=== PATIENT | female | born 1975 | race Caucasian/White ===

== ENCOUNTER 2020-08-04 06:22 | Inpatient (IN) | payer OTHER ==
[~2020-08-04] VITALS: Ht 162.6 cm; Wt 99.4 kg
[2020-08-04 06:15] VITALS: BP 128/71
[2020-08-04] MEDS ORDERED: CHLO25TA10 PO (07:10)
--- NOTE | 2020-08-04 07:15 | NUR ---
ADMIT NOTE The patient, ISAMAR HICKS, 45 y/o, F admitted by GI JEFFERSON MD, was given written information regarding hospital policies, unit procedures and contact persons. Patient orientated to unit, plan of care discussed, and admit packet reviewed. Patient's allergies verified and home medication sent to pharmacy for storage. MD notified of patient admission and orders received. Patient in bed, bed in lowest/locked position, and call light within reach. Transfer of care to oncoming RN at this time.
[2020-08-04] MEDS ORDERED: ONDANSETRON PF 4 MG/2 ML VIAL. IVP PRN (07:30)
[2020-08-04] MEDS ORDERED: SECU150P2 SQ (07:41)
[2020-08-04] MEDS: MORPHINE SULFATE 4 MG/ML VIAL. IV PRN ×2 (08:02→12:11)
[2020-08-04] MEDS: IV NORMAL SALINE 1000ML BAG 1,000 ML IV SCH ×2 (08:02→18:11)
--- NOTE | 2020-08-04 08:36 | PDOC1 ---
History and Physical Date of Admission Date of Admission DATE: 08/04/20 TIME: 08:29 Identification/Chief Complaint Chief Complaint Abdominal pain, vaginal bleeding Source Source: Patient History of Present Illness History of Present Illness Ms Thompson is a 45 year old female w/ PMHx psoriatic arthritis who presents to [place] ED with reported vaginal bleeding and cramping. Patient complaining of dysfunctional uterine bleeding like cramps, but severe epigastric symptoms. She has previously had an appendectomy cholecystectomy, and bowel resection for intussusception at age 4 months. She was initially worried that may have been her. Or recently starting Cosentyx for her psoriatic arthritis but she failed to improve with conservative measures she came to the ER. CT abdomen pelvis consistent with a small bowel obstruction. Labs with WBC 7.8, Hb 13.8, platelets 259, NA 134, K4.7, BUN 17, CR 0.9, glucose 136, INR 120 urinalysis positive for blood negative hCG. Due to small bowel obstruction patient was transferred to [facility] for general surgical consultation and further management. Past Medical History Cardiovascular: No pertinent hx Rheumatologic: Other (Psoriatic) Past Surgical History Past Surgical History: Appendectomy, Cholecystectomy, (x2), Colon R esection Current Medications Current Medications Current Medications Morphine Sulfate (Morphine Sulfate) 4 mg PRN Q4HRS PRN IV PAIN Last administered on 08/04/20at 08:02; Start 08/04/20 at 07:30 Ondansetron HCl (Zofran) 4 mg PRN Q6HRS PRN IVP NAUSEA/VOMITING Last administered on 08/04/20at 08:02; Start 08/04/20 at 07:30 Sodium Chloride 1,000 ml @ 100 mls/hr Q10H IV Last administered on 08/04/20at 08:02; Start 08/04/20 at 07:30 Active Scripts Active Reported Cosentyx Pen (Secukinumab) 150 Mg/1 Ml Pen.injctr 150 Mg SQ WEEKLY Chlorthalidone (Chlorthalidone) 25 Mg Tablet 25 Mg PO DAILY Allergies Allergies: Coded Allergies: codeine (Verified Allergy, Unknown, 08/04/20) TOLERATES MORPHINE hydrocodone (Verified Allergy, Unknown, 08/04/20) TOLERATES MORPHINE ROS General: YES: Fatigue, Malaise; No: Chills, Night Sweats, Appetite, Other PSYCHOLOGICAL ROS: No: Anxiety, Behavioral Disorder, Concentration difficultie, Decreased libido, Depression, Disorientation, Hallucinations, Hostility, Irritablity, Memory difficulties, Mood Swings, Obsessive thoughts, Physical abuse, Sexual abuse, Sleep disturbances, Suicidal ideation, Other Eyes: No Blurry vision, No Decreased vision, No Double vision, No Dry eyes, No Excessive tearing, No Eye Pain, No Itchy Eyes, No Loss of vision, No Photophobia, No Scotomata, No Uses contacts, No Uses glasses, No Other HEENT: No: Heacaches, Visual Changes, Hearing change, Nasal congestion, Nasal discharge, Oral lesions, Sinus pain, Sore Throat, Epistaxis, Sneezing, Snoring, Tinnitus, Vertigo, Vocal changes, Other ALLERGY AND IMMUNOLOGY: No: Hives, Insect Bite Sensitivity, Itchy/Watery Eyes, Nasal Congestion, Post Nasal Drip, Seasonal Allergies, Other Hematological and Lymphatic: No: Bleeding Problems, Blood Clots, Blood Transfusions, Brusing, Night Sweats, Pallor, Swollen Lymph Nodes, Other ENDOCRINE: No: Breast Changes, Galactorrhea, Hair Pattern Changes, Hot Flashes, Malaise/lethargy, Mood Swings, Palpitations, Polydipsia/polyuria, Skin Changes, Temperature Intolerance, Unexpected Weight Changes, Other Breast: No New/Changing Breast Lumps, No Nipple changes, No Nipple discharge, No Other Respiratory: No: Cough, Hemoptysis, Orthopnea, Pleuritic Pain, Shortness of breath, SOB with excertion, Sputum Changes, Stridor, Tachypnea, Wheezing, Other Cardiovascular: No Chest Pain, No Palpitations, No Orthopnea, No Paroxysmal Noc. Dyspnea, No Edema, No Lt Headedness, No Other Gastrointestinal: Yes Nausea, Yes Vomiting, Yes Abdominal Pain; No Diarrhea, No Constipation, No Melena, No Hematochezia, No Other Genitourinary: No Dysuria, No Frequency, No Incontinence, No Hematuria, No Retention, No Discharge, No Urgency, No Pain, No Flank Pain, No Other, No , No , No , No , No , No , No Musculoskeletal: No Gait Disturbance, No Joint Pain, No Joint Stiffness, No Joint Swelling, No Muscle Pain, No Muscular Weakness, No Pain In:, No Swelling In:, No Other Neurological: No Behavorial Changes, No Bowel/Bladder ControlChng, No Confusion, No Dizziness, No Gait Disturbance, No Headaches, No Impaired Coord/balance, No Memory Loss, No Numbness/Tingling, No Seizures, No Speech Problems, No Tremors, No Visual Changes, No Weakness, No Other Skin: Yes Rash; No Dry Skin, No Eczema, No Hair Changes, No Lumps, No Mole Changes, No Mottling, No Nail Changes, No Pruritus, No Skin Lesion Changes, No Other, No Acne Physical Exam General: Alert, Oriented X3, Cooperative, moderate distress HEENT: Atraumatic, PERRLA, EOMI, Mucous membr. moist/pink Lungs: Clear to auscultation, Normal air movement Heart: S1S2, RRR, no thrills, no rubs, no gallops, no murmurs Abdomen: Soft, No hepatosplenomegaly, No masses, Other (Diffuse tenderness, mulitple scars) Rectal Exam: not examined Extremities: No clubbing, No cyanosis, No edema, Normal pulses, No tenderness/swelling Skin: Other (Psoriasis of knuckles, ankles, knees, elbows) Neuro: Normal gait, Normal speech, Strength at 5/5 X4 ext, Normal tone, Sensation intact, Cranial nerves 3-12 NL, Reflexes 2+ Psych/Mental Status: Mental status NL, Mood NL Vitals Vitals Vital Signs Date Time Temp Pulse Resp B/P (MAP) Pulse Ox O2 Delivery O2 Flow Rate FiO2 08/04/20 08:02 Room Air 08/04/20 06:15 98.5 58 14 128/71 (90) 97 98.5 Labs Labs Laboratory Tests Test 08/04/20 07:19 SARS-CoV-2 Antigen (Rapid) Negative (NEGATIVE) Laboratory Tests Test 08/04/20 07:19 SARS-CoV-2 Antigen (Rapid) Negative (NEGATIVE) Images Images CT abdomen/pelvis without intravenous contrast: Lower chest: Normal. Liver: There is a 2.4 x 1.0 cm subcapsular lesion in the right hepatic lobe with fat density. Gallbladder/Biliary Tree: Gallbladder surgically absent. Bile ducts are normal. Pancreas: Normal. Spleen: Normal. Adrenal Glands: Normal. Kidneys/Ureters/Bladder: Kidneys, ureters, and bladder are normal. Reproductive Organs: Uterus is enlarged. The ovaries are prominent. Stomach, small bowel, and colon: Stomach is mildly distended. There are surgical clips in the left midabdomen adjacent to the small bowel. The mid to distal small bowel is dilated up to 4.4 cm in diameter. There is a transition point in the right upper quadrant were there is a segment of abnormal small bowel with wall thickening and narrowing, suspicious for stricture, acute inflammatory bowel disease, or mass. Small bowel proximal to this demonstrates fecalization. Small bowel distal to this is normal to decompressed. There is fat stranding and small amount of free fluid surrounding loops of abnormal bowel in the right upper quadrant. No pneumatosis or pneumoperitoneum. The colon is normal aside from mild sigmoid diverticulosis. Vasculature: Abdominal aorta is normal. Lymph Nodes: There are bilateral external iliac chain lymph nodes, including a 1.3 cm short axis left external iliac chain node (image 77, series 2). Peritoneum and retroperitoneum: No free fluid or free air. Bones: No acute osseous abnormality. There is lower lumbar facet arthrosis. Impression: 1. Mechanical small bowel obstruction with transition point in the right upper quadrant were there is a segment of abnormal small bowel with relative narrowing and wall thickening. This could be due to stricture, acute inflammatory bowel disease, or mass. Small amount of fat surrounding free fluid around the small bowel. No pneumatosis or pneumoperitoneum. 2. Enlarged uterus and prominent ovaries. Correlate with clinical history and pelvic ultrasound as indicated. 3. 2.4 cm fat-containing subcapsular lesion in the right hepatic lobe. This is indeterminate. Nonemergent CT or MRI with renal mass protocol could be obtained. 4. Mildly enlarged left external iliac chain lymph node measuring 1.3 cm short axis. Other small bilateral external iliac chain lymph nodes, nonspecific. VTE Prophylaxis Ordered VTE Prophylaxis Devices: Yes VTE Pharmacological Prophylaxi: Yes Assessment/Plan Assessment/Plan A/P: SBO - NPO, NGT to place. General surgery consulted. Pain control and nausea control with IV Psoriatic arthritis -on Cosentyx outpatient. Vaginal bleeding - dysmenohrrea Lower extremity edema - notes she takes chlorthalidone outpatient, will hold diuretics while npo FEN - NPO PPX - SCDs FULL CODE Dispo - inpatient for bowel obstruction Justifications for Admission Other Justification KIERRA PINO MD Aug 04, 2020 08:36
[2020-08-04 11:00] VITALS: BP 112/40
--- NOTE | 2020-08-04 11:27 | NUR ---
Paged sent out to Dr. Nam to verify consultation had been completed.
[2020-08-04] MEDS ORDERED: PROCHLORPERAZINE 10 MG/2 ML VIAL. IV PRN (12:45)
[2020-08-04] MEDS ORDERED: ACETAMINOPHEN 650 MG SUPP.RECT. PR PRN (12:45)
[2020-08-04] MEDS ORDERED: BISACODYL 10 MG SUPP.RECT. PR PRN (12:45)
[2020-08-04 15:00] VITALS: BP 110/68
--- NOTE | 2020-08-04 16:02 | PDOC2 ---
CONSULT Date of Consult Date of Consult DATE: 08/04/20 TIME: 15:58 Reason for Consult Reason for Consult: Abdominal pain abnormal CT scan Referring Physician Referring Physician: Fidencio Identification/Chief Complaint Chief Complaint Abdominal cramping with vaginal bleeding Source Source: Chart review, Patient History of Present Illness Reason for Visit: 45-year-old female that a 24-hour history of abdominal cramping then had a large amount of vaginal bleeding cramping did not get better actually with worsening so she went to the emergency department [place] for further evaluation. CT scan was done at that time which showed dilated loops of small bowel concerning for small bowel obstruction she denies any nausea or vomiting. Last bowel movement was yesterday normal. NG tube was placed at that time and she was transferred to [facility] for further evaluation and treatment. She currently is resting comfortably in bed NG tube in place, small output. Past Medical History Cardiovascular: No pertinent hx Rheumatologic: Other (Psoriatic) Past Surgical History Past Surgical History: Appendectomy, Cholecystectomy, (x2), Colon Resection Current Medications Current Medications Current Medications Morphine Sulfate (Morphine Sulfate) 4 mg PRN Q4HRS PRN IV PAIN Last admi nistered on 08/04/20at 12:11; Start 08/04/20 at 07:30; Stop 08/04/20 at 13:18; Status DC Ondansetron HCl (Zofran) 4 mg PRN Q6HRS PRN IVP NAUSEA/VOMITING, 1st CHOICE Last administered on 08/04/20at 08:02; Start 08/04/20 at 07:30 Sodium Chloride 1,000 ml @ 100 mls/hr Q10H IV Last administered on 08/04/20at 08:02; Start 08/04/20 at 07:30 Ketorolac Tromethamine (Toradol 30mg Vial) 30 mg PRN Q6HRS PRN IVP INFLAMMATION; Start 08/04/20 at 12:45 Acetaminophen (Tylenol Supp) 650 mg PRN Q6HRS PRN NV MILD PAIN / TEMP > 100.3'F; Start 08/04/20 at 12:45 Bisacodyl (Dulcolax Supp) 10 mg PRN DAILY PRN NV CONSTIPATION; Start 08/04/20 at 12:45 Prochlorperazine Edisylate (Compazine) 10 mg PRN Q6HRS PRN IV NAUSEA/VOMITING, 2nd CHOICE; Start 08/04/20 at 12:45 Morphine Sulfate (Morphine Sulfate) 2 mg PRN Q4HRS PRN IVP MODERATE TO SEVERE PAIN; Start 08/04/20 at 13:30 Active Scripts Active Reported Cosentyx Pen (Secukinumab) 150 Mg/1 Ml Pen.injctr 150 Mg SQ WEEKLY Chlorthalidone (Chlorthalidone) 25 Mg Tablet 25 Mg PO DAILY Allergies Allergies: Coded Allergies: codeine (Verified Allergy, Unknown, 08/04/20) TOLERATES MORPHINE hydrocodone (Verified Allergy, Unknown, 08/04/20) TOLERATES MORPHINE ROS Gastrointestinal: Yes Abdominal Pain Physical Exam General: Alert, Oriented X3, Cooperative, mild distress HEENT: Atraumatic, EOMI Lungs: Clear to auscultation, Normal air movement Heart: Regular rate, No murmurs Abdomen: Soft, Other (Diffusely tender no peritoneal signs) Extremities: No edema Neuro: Normal speech Psych/Mental Status: Mental status NL Vitals VITALS Vital Signs Date Time Temp Pulse Resp B/P (MAP) Pulse Ox O2 Delivery O2 Flow Rate FiO2 08/04/20 15:00 98.0 61 20 110/68 (82) 97 Room Air 98.0 Labs Labs Laboratory Tests Test 08/04/20 07:19 SARS-CoV-2 Antigen (Rapid) Negative (NEGATIVE) Laboratory Tests Test 08/04/20 07:19 SARS-CoV-2 Antigen (Rapid) Negative (NEGATIVE) Images Images CT scan showing dilated loops of small bowel with fluid-filled Assessment/Plan Assessment/Plan Small bowel obstruction versus ileus will continue conservative therapy NG suction bowel rest Repeat abdominal films in a.m. May need small bowel follow-through for further evaluation ASYA BRYANT MD Aug 04, 2020 16:02
[2020-08-04 19:04] VITALS: BP 117/70
[2020-08-04] MEDS: MORPHINE SULFATE 2 MG/ML VIAL. IVP PRN (19:53)
[2020-08-04 23:10] VITALS: BP 122/76
[2020-08-05] MEDS: MORPHINE SULFATE 2 MG/ML VIAL. IVP PRN ×3 (00:52→19:29)
[2020-08-05 02:53] VITALS: BP 132/71
[2020-08-05] MEDS: IV NORMAL SALINE 1000ML BAG 1,000 ML IV SCH ×2 (03:48→13:30)
[2020-08-05 07:00] VITALS: BP 135/81
[2020-08-05 07:56] LABS: BASO % 0 % (0-3); EOS # 0.1 x10^3/uL (0.0-0.7); EOS % 2 % (0-3); HEMATOCRIT 35.7 % (36.0-47.0); LYMPH % 18 % (24-48); MEAN CORPUSCULAR HEMOGLOBIN 28 pg (25-35); MEAN CORPUSCULAR HGB CONC 34 g/dL (31-37); MEAN CORPUSCULAR VOLUME 83 fL (79-100); MONO # 0.4 x10^3/uL (0.0-1.1); MONO % 8 % (0-9); NEUT # 3.9 x10^3/uL (1.8-7.7); NEUT % 73 % (31-73); PLATELET COUNT 213 x10^3/uL (140-400); RED BLOOD COUNT 4.32 x10^6/uL (3.50-5.40); RED CELL DISTRIBUTION WIDTH 14.9 % (11.5-14.5); WHITE BLOOD COUNT 5.4 x10^3/uL (4.0-11.0)
[2020-08-05] MEDS: KETOROLAC 30 MG/ML VIAL. IVP PRN (08:13)
--- NOTE | 2020-08-05 08:22 | PDOC ---
SURGICAL PROGRESS NOTE DATE: 08/05/20 TIME: 08:21 Subjective Patient complains of a headache otherwise had several bowel movements last night. Denies any nausea still having some upper epigastric pain Vital Signs Vital Signs Date Time Temp Pulse Resp B/P (MAP) Pulse Ox O2 Delivery O2 Flow Rate FiO2 08/05/20 07:00 98.6 70 18 135/81 (99) 97 Room Air 98.6 PATIENT HAS A GRIFFITH: No General: Alert, Oriented X3, Cooperative, mild distress Abdomen: Normal bowel sounds, Soft, Other (Mildly tender to palpation in the epigastrium minimal NG tube output) Labs Laboratory Tests Test 08/04/20 07:13 08/04/20 07:19 08/05/20 07:35 Coronavirus (PCR) Not detected (Not Detected) SARS-CoV-2 Antigen (Rapid) Negative (NEGATIVE) White Blood Count 5.4 x10^3/uL (4.0-11.0) Red Blood Count 4.32 x10^6/uL (3.50-5.40) Hemoglobin 12.0 g/dL (12.0-15.5) Hematocrit 35.7 % (36.0-47.0) Mean Corpuscular Volume 83 fL (79-100) Mean Corpuscular Hemoglobin 28 pg (25-35) Mean Corpuscular Hemoglobin Concent 34 g/dL (31-37) Red Cell Distribution Width 14.9 % (11.5-14.5) Platelet Count 213 x10^3/uL (140-400) Neutrophils (%) (Auto) 73 % (31-73) Lymphocytes (%) (Auto) 18 % (24-48) Monocytes (%) (Auto) 8 % (0-9) Eosinophils (%) (Auto) 2 % (0-3) Basophils (%) (Auto) 0 % (0-3) Neutrophils # (Auto) 3.9 x10^3/uL (1.8-7.7) Lymphocytes # (Auto) 1.0 x10^3/uL (1.0-4.8) Monocytes # (Auto) 0.4 x10^3/uL (0.0-1.1) Eosinophils # (Auto) 0.1 x10^3/uL (0.0-0.7) Basophils # (Auto) 0.0 x10^3/uL (0.0-0.2) Laboratory Tests Test 08/05/20 07:35 White Blood Count 5.4 x10^3/uL (4.0-11.0) Red Blood Count 4.32 x10^6/uL (3.50-5.40) Hemoglobin 12.0 g/dL (12.0-15.5) Hematocrit 35.7 % (36.0-47.0) Mean Corpuscular Volume 83 fL (79-100) Mean Corpuscular Hemoglobin 28 pg (25-35) Mean Corpuscular Hemoglobin Concent 34 g/dL (31-37) Red Cell Distribution Width 14.9 % (11.5-14.5) Platelet Count 213 x10^3/uL (140-400) Neutrophils (%) (Auto) 73 % (31-73) Lymphocytes (%) (Auto) 18 % (24-48) Monocytes (%) (Auto) 8 % (0-9) Eosinophils (%) (Auto) 2 % (0-3) Basophils (%) (Auto) 0 % (0-3) Neutrophils # (Auto) 3.9 x10^3/uL (1.8-7.7) Lymphocytes # (Auto) 1.0 x10^3/uL (1.0-4.8) Monocytes # (Auto) 0.4 x10^3/uL (0.0-1.1) Eosinophils # (Auto) 0.1 x10^3/uL (0.0-0.7) Basophils # (Auto) 0.0 x10^3/uL (0.0-0.2) Assessment/Plan Several bowel movements DC NG tube Patient may have ice chips and water Justicifation of Admission Dx: Justifications for Admission: Justification of Admission Dx: N/A ASYA BRYANT MD Aug 05, 2020 08:22
--- NOTE | 2020-08-05 08:58 | PDOC ---
[employer] PROGRESS NOTE Date of Service DOS: DATE: 08/05/20 TIME: 08:57 Chief Complaint Chief Complaint A/P: SBO - NPO, NGT to place. General surgery consulted. Pain control and nausea control with IV Psoriatic arthritis -on Cosentyx outpatient. Vaginal bleeding - dysmenohrrea Lower extremity edema - notes she takes chlorthalidone outpatient, will hold diuretics while npo FEN - NPO PPX - SCDs FULL CODE Dispo - inpatient for bowel obstruction History of Present Illness History of Present Illness Ms Thompson is a 45 year old female w/ PMHx psoriatic arthritis who presents to [facility] with reported vaginal bleeding and cramping. Patient complaining of dysfunctional uterine bleeding like cramps, but severe epigastric symptoms. She has previously had an appendectomy cholecystectomy, and bowel resection for intussusception at age 4 months. She was initially worried that may have been her. Or recently starting Cosentyx for her psoriatic arthritis but she failed to improve with conservative measures she came to the ER. CT abdomen pelvis consistent with a small bowel obstruction. Labs with WBC 7.8, Hb 13.8, platelets 259, NA 134, K4.7, BUN 17, CR 0.9, glucose 136, INR 120 urinalysis positive for blood negative hCG. Due to small bowel obstruction patient was transferred to [facility] for general surgical consultation and further management. Overnight no events. Slept well. No significant NGT output. Passing flatus currently. No CP or SOB. Labs relatively unchanged Vitals/I&O Vitals/I&O: Vital Signs Date Time Temp Pulse Resp B/P (MAP) Pulse Ox O2 Delivery O2 Flow Rate FiO2 08/05/20 07:00 98.6 70 18 135/81 (99) 97 Room Air 98.6 Physical Exam General: Alert, Oriented X3, Cooperative, mild distress Heart: Regular rate, No murmurs Abdomen: Normal bowel sounds, Soft, Other (Mildly tender to palpation in the epigastrium minimal NG tube output) Extremities: No edema Skin: Other (Psoriasis of knuckles, ankles, knees, elbows) Labs Labs: Laboratory Tests Test 08/05/20 07:35 White Blood Count 5.4 x10^3/uL (4.0-11.0) Red Blood Count 4.32 x10^6/uL (3.50-5.40) Hemoglobin 12.0 g/dL (12.0-15.5) Hematocrit 35.7 % (36.0-47.0) Mean Corpuscular Volume 83 fL (79-100) Mean Corpuscular Hemoglobin 28 pg (25-35) Mean Corpuscular Hemoglobin Concent 34 g/dL (31-37) Red Cell Distribution Width 14.9 % (11.5-14.5) Platelet Count 213 x10^3/uL (140-400) Neutrophils (%) (Auto) 73 % (31-73) Lymphocytes (%) (Auto) 18 % (24-48) Monocytes (%) (Auto) 8 % (0-9) Eosinophils (%) (Auto) 2 % (0-3) Basophils (%) (Auto) 0 % (0-3) Neutrophils # (Auto) 3.9 x10^3/uL (1.8-7.7) Lymphocytes # (Auto) 1.0 x10^3/uL (1.0-4.8) Monocytes # (Auto) 0.4 x10^3/uL (0.0-1.1) Eosinophils # (Auto) 0.1 x10^3/uL (0.0-0.7) Basophils # (Auto) 0.0 x10^3/uL (0.0-0.2) Comment Review of Relevant I have reviewed the following items christiano (where applicable) has been applied. Medications: Current Medications Medications (Trade) Dose Ordered Sig/Karsten Route PRN Reason Start Time Stop Time Status Last Admin Dose Admin Ketorolac Tromethamine (Toradol 30mg Vial) 30 mg PRN Q6HRS PRN IVP INFLAMMATION 08/04/20 12:45 08/05/20 08:13 Bisacodyl (Dulcolax Supp) 10 mg PRN DAILY PRN [place] CONSTIPATION 08/04/20 12:45 08/04/20 20:01 Morphine Sulfate (Morphine Sulfate) 2 mg PRN Q4HRS PRN IVP MODERATE TO SEVERE PAIN 08/04/20 13:30 08/05/20 00:52 Justifications for Admission Other Justification KIERRA PINO MD Aug 05, 2020 08:58
[2020-08-05 09:15] LABS: ALBUMIN 2.8 g/dL (3.4-5.0); ALBUMIN/GLOBULIN RATIO 0.9 (1.0-1.7); CALCIUM 7.4 mg/dL (8.5-10.1); CREATININE 0.8 mg/dL (0.6-1.0); GFR 76.9; POTASSIUM 3.6 mmol/L (3.5-5.1); TOTAL BILIRUBIN 0.4 mg/dL (0.2-1.0)
--- NOTE | 2020-08-05 10:05 | RAD ---
XR ABDOMEN 2V History: Reason: sbo / Spl. Instructions: / History: Technique: Supine views of the abdomen. Comparison: August 04, 2020 CT and radiograph Findings: Increased dilated loops of small bowel within the lower mid abdomen. Air and stool scattered througho ut the imaged colon. Contrast progressed into the proximal mid colon. Surgical clips right upper and left mid abdomen. Impression: 1. Increased small bowel gaseous distention within the mid lower abdomen. 2. Contrast progressed into the colon compared to prior CT. Electronically signed by: Noé Montes DO (08/05/2020 10:02 AM) [id number]
[2020-08-05 11:00] VITALS: BP 158/91
[2020-08-05 15:00] VITALS: BP 137/69
[2020-08-05] MEDS ORDERED: ACETAMINOPHEN 325 MG TABLET. PO PRN (19:15)
[2020-08-05 19:20] VITALS: BP 180/98
[2020-08-05 23:30] VITALS: BP 154/79
[2020-08-06] MEDS: IV NORMAL SALINE 1000ML BAG 1,000 ML IV SCH ×2 (00:50→09:42)
[2020-08-06 03:19] VITALS: BP 150/90
[2020-08-06 07:14] VITALS: BP 143/82
--- NOTE | 2020-08-06 09:35 | NUR ---
SW following. Discussed with RN, pt from home with , room air, clear liquid diet, COVID-19 negative. RN anticipates possible discharge home with self care today or tomorrow (08/07/20). SW will continue to follow.
[2020-08-06] MEDS: MORPHINE SULFATE 2 MG/ML VIAL. IVP PRN (09:40)
[2020-08-06 10:31] VITALS: BP 155/84
--- NOTE | 2020-08-06 11:04 | PDOC ---
ALMA GONZALES LEAD INST[employer]ER 08/06/20 1104: SURGICAL PROGRESS NOTE DATE: 08/06/20 TIME: 11:03 Subjective still epigastric pain no n/v tolerating clears had stool, loose Vital Signs Vital Signs Date Time Temp Pulse Resp B/P (MAP) Pulse Ox O2 Delivery O2 Flow Rate FiO2 08/06/20 10:31 98.4 61 18 155/84 (107) 96 Room Air 98.4 I&O Intake and Output 08/06/20 07:00 Intake Total 240 ml Balance 240 ml Intake Oral 240 ml # Voids 3 General: Alert, Oriented X3, Cooperative Abdomen: Soft, Other (ttp epigastric) Labs Laboratory Tests Test 08/05/20 07:35 White Blood Count 5.4 x10^3/uL (4.0-11.0) Red Blood Count 4.32 x10^6/uL (3.50-5.40) Hemoglobin 12.0 g/dL (12.0-15.5) Hematocrit 35.7 % (36.0-47.0) Mean Corpuscular Volume 83 fL (79-100) Mean Corpuscular Hemoglobin 28 pg (25-35) Mean Corpuscular Hemoglobin Concent 34 g/dL (31-37) Red Cell Distribution Width 14.9 % (11.5-14.5) Platelet Count 213 x10^3/uL (140-400) Neutrophils (%) (Auto) 73 % (31-73) Lymphocytes (%) (Auto) 18 % (24-48) Monocytes (%) (Auto) 8 % (0-9) Eosinophils (%) (Auto) 2 % (0-3) Basophils (%) (Auto) 0 % (0-3) Neutrophils # (Auto) 3.9 x10^3/uL (1.8-7.7) Lymphocytes # (Auto) 1.0 x10^3/uL (1.0-4.8) Monocytes # (Auto) 0.4 x10^3/uL (0.0-1.1) Eosinophils # (Auto) 0.1 x10^3/uL (0.0-0.7) Basophils # (Auto) 0.0 x10^3/uL (0.0-0.2) Sodium Level 145 mmol/L (136-145) Potassium Level 3.6 mmol/L (3.5-5.1) Chloride Level 112 mmol/L (98-107) Carbon Dioxide Level 26 mmol/L (21-32) Anion Gap 7 (6-14) Blood Urea Nitrogen 17 mg/dL (7-20) Creatinine 0.8 mg/dL (0.6-1.0) Estimated GFR (Cockcroft-Gault) 76.9 BUN/Creatinine Ratio 21 (6-20) Glucose Level 86 mg/dL (70-99) Calcium Level 7.4 mg/dL (8.5-10.1) Total Bilirubin 0.4 mg/dL (0.2-1.0) Aspartate Amino Transf (AST/SGOT) 12 U/L (15-37) Alanine Aminotransferase (ALT/SGPT) 20 U/L (14-59) Alkaline Phosphatase 52 U/L (46-116) Total Protein 6.0 g/dL (6.4-8.2) Albumin 2.8 g/dL (3.4-5.0) Albumin/Globulin Ratio 0.9 (1.0-1.7) Problem List sbo vs ileus observation, see how diet/pain over lunch Justicifation of Admission Dx: Justifications for Admission: Justification of Admission Dx: N/A ASYA BRYANT MD 08/06/20 1551: SURGICAL PROGRESS NOTE Assessment/Plan Agree with Dona's assessment and plan ALMA GONZALES APRN Aug 06, 2020 11:04 ASYA BRYANT MD Aug 06, 2020 15:51
--- NOTE | 2020-08-06 11:28 | PDOC ---
[employer] PROGRESS NOTE Date of Service DOS: DATE: 08/06/20 TIME: 11:22 Chief Complaint Chief Complaint Small bowel obstruction History of Present Illness History of Present Illness Ms Thompson is a 45 year old female w/ PMHx psoriatic arthritis who presents to [place] ED with reported vaginal bleeding and cramping. Patient complaining of dysfunctional uterine bleeding like cramps, but severe epigastric symptoms. She has previously had an appendectomy cholecystectomy, and bowel resection for intussusception at age 4 months. She was initially worried that may have been her. Or recently starting Cosentyx for her psoriatic arthritis but she failed to improve with conservative measures she came to the ER. CT abdomen pelvis consistent with a small bowel obstruction. Labs with WBC 7.8, Hb 13.8, platelets 259, NA 134, K4.7, BUN 17, CR 0.9, glucose 136, INR 120 urinalysis positive for blood negative hCG. Due to small bowel obstruction patient was transferred to [facility] for general surgical consultation and further management. Overnight no events. Slept well. No significant NGT output. Passing flatus currently. No CP or SOB. Labs relatively unchanged 08-06-20 - Pt seen and examined - Dw RN - Chart reviewed Vitals/I&O Vitals/I&O: Vital Signs Date Time Temp Pulse Resp B/P (MAP) Pulse Ox O2 Delivery O2 Flow Rate FiO2 08/06/20 10:31 98.4 61 18 155/84 (107) 96 Room Air 98.4 I & O 08/05/20 08/05/20 08/06/20 15:00 23:00 07:00 Intake Total 240 ml Balance 240 ml Physical Exam General: Alert, Oriented X3, Cooperative Heart: Regular rate, Normal S1, Normal S2, No murmurs Lungs: Clear Abdomen: Normal bowel sounds, Soft, No tenderness, Other (ttp epigastric) Extremities: No clubbing, No cyanosis Skin: No rashes, No breakdown, Other (Psoriasis of knuckles, ankles, knees, elbows) Review of Systems Review of Systems: No rashes or itching. No dizziness or headaches. Pt oriented and in NAD. Assessment and Plan Assessmemt and Plan A/P: SBO - NPO, NGT to place. General surgery consulted. Pain control and nausea control with IV Psoriatic arthritis -on Cosentyx outpatient. Vaginal bleeding - dysmenohrrea Lower extremity edema - notes she takes chlorthalidone outpatient, will hold diuretics while npo FEN - NPO PPX - SCDs FULL CODE Dispo - inpatient for bowel obstruction Assessment: 1. Small bowel obstruction 2. Psoriatic arthritis 3. Vaginal bleeding Plan: 1. DVT prophylaxis 2. Cont home meds 3. Cont monitoring 4. Trend labs 5. Advance patient's diet and if the patient tolerates this, then patient may possibly be discharged Comment Review of Relevant I have reviewed the following items christiano (where applicable) has been applied. Medications: Current Medications Medications (Trade) Dose Ordered Sig/Karsten Route PRN Reason Start Time Stop Time Status Last Admin Dose Admin Acetaminophen (Tylenol) 650 mg PRN Q6HRS PRN PO MILD PAIN / TEMP > 100.3'F 08/05/20 19:15 08/05/20 19:23 Justifications for Admission Other Justification MCKAY PATEL III DO Aug 06, 2020 11:28
--- NOTE | 2020-08-06 11:32 | DS ---
DATE OF DISCHARGE: 08/06/2020 ADMISSION DIAGNOSIS: Small-bowel obstruction. DISCHARGE DIAGNOSIS: Resolving small-bowel obstruction. HOSPITAL COURSE: The patient is a pleasant middle-aged female who presented with small-bowel obstruction. We placed an NG. We consulted General Surgery and basically over the past couple of days, she has returned to her baseline. This morning, I saw her and examined her. We get the NG out. She is tolerating clear liquid diet. I discussed the case with the gearcase assembler and the nurse. We plan to advance her diet and if she tolerates that let her go home. DISPOSITION: Home. ACTIVITY: As tolerated. DIET: Low sodium. MEDICATIONS: Please see the MRAD. TOTAL TIME: 32 minutes. MCKAY PATEL DO DR: LY/[place] JOB#: [id number] / [id number]
[2020-08-06] MEDS: KETOROLAC 30 MG/ML VIAL. IVP PRN (12:58)
[2020-08-06] MEDS ORDERED: oxyCODONE/APAP 5/325 1 TAB TABLET PO PRN (13:15)
[2020-08-06] MEDS ORDERED: traMADol 50 MG TABLET PO PRN (13:30)
[2020-08-06 14:48] VITALS: BP 165/94
--- NOTE | 2020-08-06 15:55 | NUR ---
Discharge instructions and belongings reviewed with patient, verbalized understanding. Patient escorted out via ambulation by Ann REILLY.
== END 2020-08-06 15:57 | disposition home or self-care (01) | DRG 388 ==
LOC: 4 NORTH 06:22
PROVIDERS: ADMIT Internal Medicine; ATTEND Internal Medicine
PROC: 0D9670Z Drainage of Stomach with Drainage Device, Via Natural or Artificial Opening (ICD-10-PCS; principal; 2020-08-04)
DX: K56.609 Unspecified intestinal obstruction, unspecified as to partial versus complete obstruction (principal); E43 Unspecified severe protein-calorie malnutrition; N93.9 Abnormal uterine and vaginal bleeding, unspecified; N94.6 Dysmenorrhea, unspecified; L40.50 Arthropathic psoriasis, unspecified; N85.2 Hypertrophy of uterus; N93.8 Other specified abnormal uterine and vaginal bleeding; Z90.49 Acquired absence of other specified parts of digestive tract; Z20.822 Contact with and (suspected) exposure to COVID-19; Z79.899 Other long term (current) drug therapy; Z88.8 Allergy status to other drugs, medicaments and biological substances
CPT/HCPCS: 36415; 74021; 80053; 85025; 87426; J0780; J1885; J2270; J2405; J7030; U0003; 97530-GP; G0378